=== PATIENT | female | born 1985 | race African-American/Black ===

== ENCOUNTER 2019-08-19 01:42 | Emergency (ER) | payer OTHER ==
[2019-08-19] MEDS ORDERED: LIDOCAINE HCL 2% JELLY 5 ML ONE (02:14)
[2019-08-19] MEDS ORDERED: IBUPROFEN 600 MG TABLET ONE (02:14)
[2019-08-19] MEDS ORDERED: CLINDAMYCIN HCL 150 MG CAP ONE (02:14)
[2019-08-19] MEDS ORDERED: ACETAMINOPHEN EXTRA STRENGTH 500 MG TABLET ONE (02:15)
== END 2019-08-19 02:32 | disposition home or self-care (01) ==
LOC: EDH 01:42
DX: K04.7 Periapical abscess without sinus (principal); K02.9 Dental caries, unspecified; Z88.6 Allergy status to analgesic agent